=== PATIENT | female | born 1975 | race African-American/Black ===

== ENCOUNTER → 2020-03-14 | Outpatient (CLI) | payer OTHER ==
--- NOTE | 2020-03-14 16:23 | RAD ---
DATE: 03/14/2020 3:30 PM EXAM: DIGITAL SCREEN BILAT W/CAD HISTORY: Screening COMPARISON: None. This is a baseline. Bilateral full field craniocaudal and mediolateral oblique images were obtained using digital technique. This study was interpreted with the benefit of Computerized Aided Detection (CAD). FINDINGS: Breast Density: HETERO The breast parenchyma Is heterogeneously dense, which could reduce sensitivity of mammography. Breast parenchyma level C Negative right mammogram. Left mammogram on the cc view shows a 4 mm asymmetry directly posterior to the nipple that projects over the retroglandular fat and shows irregular margins. While this could represent overlap of fibroglandular tissue, it needs additional imaging preferably with a CC and ML tomographic view but alternatively or in addition, may be further imaged with spot compression and rolled views. Slightly more laterally, also in the posterior third of the left breast is a dense asymmetry with associated faint, punctate calcifications that need additional imaging with spot magnification view and preferably 3-D tomographic imaging. Both findings may also potentially benefit from targeted ultrasound. IMPRESSION: Left breast asymmetry, findings for which additional imaging is advised. BI-RADS CATEGORY: 0 INCOMPLETE: NEEDS ADDITIONAL IMAGING EVALUATION AND/OR PRIOR MAMMOGRAMS FOR COMPARISON. RECOMMENDED FOLLOW-UP: ADD ADDITIONAL IMAGING The patient will be contacted to return for additional imaging and a supplemental report will follow. PQRS compliance statement: Patient information was entered into a reminder system with a target due date for the next mammogram. Mammography is a sensitive method for finding small breast cancers, but it does not detect them all and is not a substitute for careful clinical examination. A negative mammogram does not negate a clinically suspicious finding and should not result in delay in biopsying a clinically suspicious abnormality. "Our facility is accredited by the [employer] Mammography Program."
== END ==
LOC: MAMMO 14:58
PROVIDERS: ATTEND Nurse Practitioner Gerontology
DX: Z12.31 Encounter for screening mammogram for malignant neoplasm of breast (principal)
CPT/HCPCS: 77067

== ENCOUNTER → 2020-04-04 | Outpatient (CLI) | payer OTHER ==
--- NOTE | 2020-04-05 14:33 | RAD ---
Examination: 1. Left digital diagnostic mammogram. 2. Limited left breast ultrasound. INDICATION: 45-year-old woman recalled from screening for left breast asymmetries. COMPARISON: Screening mammogram of 03/14/2020 TECHNIQUE: Additional mammographic views of the left breast with spot compression in the CC projectio n and full field left cc view and exaggerated laterally were obtained and reviewed with computer-aide d detection. Targeted ultrasound of the lateral left breast was subsequently pursued. FINDINGS: The questioned asymmetry in the lateral left breast changed configuration in a pattern suggesting pos sible overlap of fibroglandular tissue but it did not fully dissipate. Since the breast parenchyma is heterogeneously dense, additional imaging by targeted ultrasound was p ursued which identified at the 3:30 o'clock position 7 cm from the nipple a 7 mm irregular hypoechoic mass with internal flow that corresponds with the dominant finding recalled from screening. Sonograp hic survey of the left axilla revealed no adenopathy. Incidental oval parallel orientation circumscribed 6 mm mass at the 2:00 position 6 cm from the nippl e is seen and shows sonographically benign features. The previously identified 4 mm asymmetry along the posterior nipple line on screening mammography was not reproduced on this examination. IMPRESSION: Suspicious irregular 7 mm mass in the left breast at the 3:30 o'clock position 7 cm from the nipple. BI-RADS Category 4 Findings suspicious for malignancy. Recommend ultrasound-guided left breast core needle biopsy. Discussed with patient the same day, and with patient's referring provider Argenis Quintanilla APRN by elham diaz at 2:28pm the following day (on 04/05/20) . Electronically signed by: Stephanie Roberts MD (04/05/2020 2:30 PM) [id number]
== END ==
LOC: MAMMO 10:39
PROVIDERS: ATTEND Nurse Practitioner Gerontology
DX: N63.21 Unspecified lump in the left breast, upper outer quadrant (principal); N64.89 Other specified disorders of breast
CPT/HCPCS: 76641; 77065

== ENCOUNTER → 2020-04-28 | Outpatient (CLI) | payer OTHER ==
--- NOTE | 2020-04-28 17:10 | RAD ---
ADDENDUM #1 Addendum: Pathology results indicate left breast nodule 3:30 o'clock position shows sclerosing lesion showing f lorid ductal epithelial hyperplasia and focal apocrine metaplasia. These are benign concordant result . Recommend return to routine screening. Electronically signed by: Stephanie Roberts MD (05/09/2020 4:07 PM) [id number] ORIGINAL REPORT Examination: 1. Ultrasound-guided left breast core needle biopsy. 2. Left digital postprocedure mammogram. INDICATION: Suspicious 7 mm mass in the left breast recommended for ultrasound-guided core needle bio psy. COMPARISON: Screening mammogram of 03/14/2020, left diagnostic mammogram and breast ultrasound of 03/25. TECHNIQUE: Informed consent was obtained and an appropriate procedural pause observed. Using standard sterile technique, ultrasound guidance and local anesthesia, multiple 14-gauge core needle biopsy sa mples were obtained of the hypoechoic mass at the left 3:30 o'clock position 7 cm from nipple measuri ng 7 mm by ultrasound. An S-shaped biopsy marker was deployed at the biopsy site and hemostasis ensured with direct breast c ompression for several minutes. Digital left postprocedure mammogram showed satisfactory positioning of the biopsy marker relative to the asymmetry. No post procedure hematoma. Puncture site was dressed and postprocedure instructions reviewed. Patient discharged in stable condi tion to follow her referring physician. There were no apparent complications. IMPRESSION: Successful, uncomplicated left breast ultrasound-guided core needle biopsy with satisfactory clip alessandra cement documented on post procedure mammogram. No apparent complications. Pathology results are pendi ng. An addendum will be issued once pathology results become available. Electronically signed by: Stephanie Roberts MD (04/28/2020 5:07 PM) [id number]
--- NOTE | 2020-05-03 16:09 | PATHOLOGY ---
[facility] Accession Number: [id number] . 01 Material submitted: . breast - LEFT BREAST NODULE. Modifiers: left . 01 Clinical history: . 7CM FN 7MM . 02 Diagnosis: Breast tissue, left breast nodule 3:30 needle biopsy: - Sclerosing lesion showing florid ductal epithelial hyperplasia and focal apocrine metaplasia. (JPM:pit 05/03/2020) [facility] 05/03/2020 1508 Local . 02 Comment: Sections of the left breast nodule at 3:30 needle biopsy reveal a sclerosing lesion of breast. Within the area of sclerosis, there are several ducts showing a marked intraductal epithelial proliferation. The epithelial cells appear heterogenous and have a somewhat haphazard orientation. Spaces within the intraductal epithelial proliferation are irregular. There is focal apocrine metaplasia. A limited panel of immunoperoxidase stains is obtained on each block and yields the following results: . CK5/6 (A1): Ductal epithelial proliferation demonstrates mosaic pattern of positivity. P63 (A1): Myoepithelial cells present around ducts showing epithelial proliferation. . CK5/6 (A2): Ductal epithelial proliferation demonstrates mosaic pattern of positivity. P63 (A2): Myoepithelial cells present around ducts showing epithelial proliferation. . CK5/6 (A3): Ductal epithelial proliferation demonstrates mosaic pattern of positivity. P63 (A3): Myoepithelial cells present around ducts showing epithelial proliferation. . The morphologic and immunophenotypic findings are supportive of the diagnosis of sclerosing lesion with marked ductal epithelial hyperplasia and focal apocrine metaplasia. There is no atypia or evidence of malignancy. (JPM:pit 05/03/2020) . Special stains performed: CK5/6 and p63 on A1, CK5/6 and p63 on A2, CK5/6 and p63 on A3. . 02 Electronically signed: . Damion Rivera MD, Pathologist NPI- [id number] . 01 Gross description: . Received in formalin labeled "Sahra Cadena, left breast" further designated by the req as "left breast 330, 7 cm from nipple, 7 mm" are 6 irregular, banks-yellow to red-brown core fragments ranging from 0.4-1.1 cm in length each having a diameter of 0.2 cm. The specimen is entirely submitted in cassettes A1-A3. The specimen was removed from the patient at 1320 and placed in formalin at 1320 on April 28, 2020 and not removed from formalin until 2148 on April 29, 2020.([facility]; 04/29/2020) GZA/[id number] 05/03/2020 1311 Local . 02 Pathologist provided ICD-10: N62, N60.82 . 02 CPT . 443355, L19626, A17935 Specimen Comment: A courtesy copy of this report has been sent to [phone] Specimen Comment: Report sent to Performed at: 01 [facility] [address] [facility] [address], [place] [id number] MD Dave Montoya MD Phone: [phone] Performed at: 02 [facility] [address] [place], [place] [id number] MD Damion Rivera MD Phone: [phone]
== END | disposition home or self-care (01) ==
LOC: US 13:25
PROVIDERS: ATTEND Surgery
DX: N63.23 Unspecified lump in the left breast, lower outer quadrant (principal); R92.8 Other abnormal and inconclusive findings on diagnostic imaging of breast; Z79.899 Other long term (current) drug therapy
CPT/HCPCS: 19083; 77065; C1713; 88305; 88341; 88342